=== PATIENT | female | born 1945 | race Caucasian/White ===

== ENCOUNTER 2022-02-17 13:31 | Outpatient (REF) | payer MEDICARE, SELFPAY ==
[2022-02-17 16:14] LABS: HCT 33.8 % (36.0-46.0); MCH 33.6 pg (27.0-33.0); MCHC 32.5 % (32.0-36.0); MCV 103.4 fL (80-95); MPV 9.9 fL (8.0-11.0); Platelet Count 334 10^3/uL (130-400); RBC 3.27 10^6/uL (3.93-5.22); RDW 16.7 % (11.7-14.6); RDW-SD 64.6 fL
[2022-02-17 16:23] LABS: BUN 13 mg/dL (7-18); CREATININE 0.5 mg/dL (0.55-1.02); Calcium 8.7 mg/dL (8.5-10.1); Chloride 99 mmol/L (98-107); Digoxin 1.33 ng/mL (0.90-2.00); Glucose 84 mg/dL (74-106); Potassium 4.7 mmol/L (3.5-5.1); Sodium 135 mmol/L (136-145)
== END 2022-02-17 13:32 | disposition home or self-care (01) ==
LOC: NCHCN 13:31
PROVIDERS: PCP Family Medicine; Visit Provider Family Medicine
DX: I48.0 Paroxysmal atrial fibrillation (principal); C34.31 Malignant neoplasm of lower lobe, right bronchus or lung; E78.00 Pure hypercholesterolemia, unspecified
CPT/HCPCS: 80048; 85027; 80162